=== PATIENT | male | born 1955 | race Caucasian/White ===

== ENCOUNTER 2017-06-03 23:44 | Emergency (ER) | END 2017-06-04 15:43 | disposition home or self-care (01) ==

== ENCOUNTER 2019-01-05 13:49 | Emergency (ER) | payer MEDICARE, OTHER ==
[~2019-01-05] VITALS: Ht 175.3 cm; Wt 72.5 kg
[~2019-01-05 13:49] MED LIST: IBUP-1542 PO
[2019-01-05 14:25] VITALS: BP 185/84; PULSE 75; RESP 18; Ht 175.3 cm; Wt 72.5 kg
== END 2019-01-05 15:54 | disposition home or self-care (01) ==
LOC: E/R 13:49
DX: S22.31XA Fracture of one rib, right side, initial encounter for closed fracture (principal); F17.210 Nicotine dependence, cigarettes, uncomplicated; W01.198A Fall on same level from slipping, tripping and stumbling with subsequent striking against other object, initial encounter; Y92.9 Unspecified place or not applicable
CPT/HCPCS: 71045; 71100